=== PATIENT | female | born 1955 | race Caucasian/White ===

== ENCOUNTER → 2017-03-16 | Outpatient (CLI) | payer BC ==
[~2017-03-16] MED LIST: ATOR10TA82 PO; CHOL100010 PO; MULTTAB58 PO
--- NOTE | 2017-03-16 13:32 | MAMMOGRAPHY REPORT ---
BILATERAL DIGITAL SCREENING MAMMOGRAM TOMOSYNTHESIS WITH CAD: 03/16/2017 TECHNIQUE: Breast tomosynthesis in addition to standard 2D mammography was performed. Current study was also evaluated with a Computer Aided Detection (CAD) system. COMPARISON: Comparison is made to exams dated: 03/13/2016 mammogram, 01/27/2014 mammogram, 03/10/2015 m ammogram, 01/22/2013 mammogram, 01/10/2012 mammogram, and 01/06/2011 mammogram - [facility]. BREAST COMPOSITION: The tissue of both breasts is almost entirely fatty. FINDINGS: No suspicious masses, calcifications, or areas of architectural distortion are noted in e ither breast. There has been no significant interval change compared to prior exams. IMPRESSION: ACR BI-RADS CATEGORY 1: NEGATIVE There is no mammographic evidence of malignancy. A 1 year screening mammogram is recommended. The p atient will receive written notification of the results. Approximately 10% of breast cancers are not detected with mammography. A negative mammographic repor t should not delay biopsy if a clinically suggestive mass is present. Rina Longoria M.D. ah/:03/16/2017 08:15:02 Threshing Machine Operator: Day Peraza RT(R)(M), [facility] letter sent: Normal 1/2 BI-RADS Code: ACR BI-RADS Category 1: Negative
== END | disposition home or self-care (01) ==
LOC: C.MAMM 07:33
PROVIDERS: ATTEND Obstetrics & Gynecology
DX: Z12.31 Encounter for screening mammogram for malignant neoplasm of breast (principal)

== ENCOUNTER → 2017-09-04 | Outpatient (CLI) | payer BC ==
[~2017-09-04] MED LIST changes: -ATOR10TA82 PO; +ATOR10TA88 PO
--- NOTE | 2017-09-04 19:58 | DIAGNOSTIC IMAGING REPORT ---
LEFT FOURTH AND FIFTH TOES (4 views) CLINICAL HISTORY: 4TH AND 5TH TOE PAIN COMPARISON: None DISCUSSION: There is an acute intra-articular fracture involving the dorsal base of the distal phalanx of the fourth toe. There is a subtle fracture involving the proximal phalanx of the fifth toe. No dislocations are evident. IMPRESSION: 1. Acute intra-articular fracture involving the dorsal base of the distal phalanx the fourth toe 2. Subtle age-indeterminate fracture involving the proximal aspect of the proximal phalanx of the fifth toe Electronically signed by: Petey Mcnamara M.D. 09/04/2017 7:57 PM Dictated Date/Time: 09/04/2017 7:54 PM
== END | disposition home or self-care (01) ==
LOC: C.RAD 19:09
PROVIDERS: ATTEND Family Medicine
DX: S99.929A Unspecified injury of unspecified foot, initial encounter (principal); X58.XXXA Exposure to other specified factors, initial encounter

== ENCOUNTER → 2017-09-17 | Outpatient (CLI) | payer BC ==
[~2017-09-17] MED LIST changes: +ATOR10TA82 PO; -ATOR10TA88 PO
--- NOTE | 2017-09-17 12:36 | DIAGNOSTIC IMAGING REPORT ---
LEFT FOURTH AND FIFTH TOE 3 VIEWS CLINICAL HISTORY: LT 4TH AND 5TH TOE PAIN COMPARISON STUDY: Left fourth and fifth toe 09/04/2017. FINDINGS: There is a healing fracture at the proximal phalanx of the fifth toe. Slightly distracted fracture at the dorsal base of the distal phalanx of the fourth toe. This demonstrates progressive displacement. IMPRESSION: 1. Healing fracture at the proximal phalanx of the left fifth toe. This is unchanged in alignment. 2. No significant healing within the small fracture at the dorsal base of the distal phalanx of the left fourth toe. This demonstrates progressive displacement. Electronically signed by: Ridge Donald M.D. 09/17/2017 12:35 PM Dictated Date/Time: 09/17/2017 12:32 PM
== END | disposition home or self-care (01) ==
LOC: C.RDSM 08:49
PROVIDERS: ATTEND Physician Assistant
DX: S92.515D Nondisplaced fracture of proximal phalanx of left lesser toe(s), subsequent encounter for fracture with routine healing (principal); S92.532G Displaced fracture of distal phalanx of left lesser toe(s), subsequent encounter for fracture with delayed healing; X58.XXXD Exposure to other specified factors, subsequent encounter; Z09 Encounter for follow-up examination after completed treatment for conditions other than malignant neoplasm

== ENCOUNTER → 2018-03-19 | Outpatient (CLI) | payer OTHER ==
--- NOTE | 2018-03-19 14:24 | MAMMOGRAPHY REPORT ---
BILATERAL DIGITAL SCREENING MAMMOGRAM TOMOSYNTHESIS WITH CAD: 03/19/2018 CLINICAL HISTORY: Routine screening. TECHNIQUE: Breast tomosynthesis in addition to standard 2D mammography was performed. Current study was also evaluated with a Computer Aided Detection (CAD) system. COMPARISON: Comparison is made to exams dated: 03/16/2017 mammogram, 03/13/2016 mammogram, 03/10/2015 m ammogram, 01/27/2014 mammogram, 01/22/2013 mammogram, and 01/10/2012 mammogram - [facility]ter. BREAST COMPOSITION: The tissue of both breasts is almost entirely fatty. FINDINGS: The parenchymal pattern is unchanged. No developing mass, architectural distortion or clus ter of suspicious microcalcifications is seen in either breast. IMPRESSION: ACR BI-RADS CATEGORY 2: BENIGN There is no mammographic evidence of malignancy. A 1 year screening mammogram is recommended. The pa tient will receive written notification of the results. Approximately 10% of breast cancers are not detected with mammography. A negative mammographic report should not delay biopsy if a clinically suggestive mass is present. Joseline Schroeder M.D. ay/:03/19/2018 11:38:46 Public Relations Coordinator: Oziel CAMEJO(Migdalia)([place]), [facility] letter sent: Normal 1/2 BI-RADS Code: ACR BI-RADS Category 2: Benign
== END | disposition home or self-care (01) ==
LOC: C.MAMM 09:24
PROVIDERS: ATTEND Obstetrics & Gynecology
DX: Z12.31 Encounter for screening mammogram for malignant neoplasm of breast (principal)

== ENCOUNTER → 2018-06-24 | Outpatient (CLI) | payer OTHER | END | disposition home or self-care (01) | LOC: C.LABSPEC 13:56 | PROVIDERS: ATTEND Obstetrics & Gynecology | DX: N76.0 Acute vaginitis (principal) ==